=== PATIENT | male | born 1955 | race Caucasian/White ===

== ENCOUNTER 2021-09-19 10:58 | Emergency (ER) | payer BC, SELFPAY ==
[2021-09-19 11:10] VITALS: BP 120/88; PULSE 82; RESP 18; TEMP 36.3; O2SAT 97
--- NOTE | 2021-09-19 11:11 | ECG_ITS ---
Measurements Intervals [place] Rate: 82 P: 43 CO: 187 QRS: 66 QRSD: 85 T: 49 QT: 351 QTc: 412 Interpretive Statements SINUS RHYTHM NORMAL ECG Electronically Signed On 09-19-2021 17:02:33 [employer] by Lalito Orosco D.O.
--- NOTE | 2021-09-19 11:11 | ED.CHESTPAIN ---
HPI - Chest Pain General Chief Complaint: Weakness Stated Complaint: achy around lower rib cage, fatigue Time Seen by Provider: 09/19/21 11:11 Source: patient Mode of arrival: ambulatory Limitations: no limitations Related Data Home Medications Medication Instructions Recorded Confirmed escitalopram oxalate 20 mg PO DAILY 09/19/21 09/19/21 rivaroxaban [Xarelto] 10 mg PO DAILY 09/19/21 09/19/21 Allergies Allergy/AdvReac Type Severity Reaction Status Date / Time No Known Allergies Allergy Verified 09/19/21 11:18 Discharge Plan Discharge Prescriptions: No Action escitalopram oxalate 10 mg Tablet 20 mg PO DAILY RF: 0 Xarelto 10 mg Tablet 10 mg PO DAILY RF: 0
--- NOTE | 2021-09-19 11:30 | ED.GENADULT ---
HPI - General Adult General Chief complaint: Weakness Stated complaint: achy around lower rib cage, fatigue Time Seen by Provider: 09/19/21 11:11 Source: patient Mode of arrival: ambulatory Limitations: no limitations History of Present Illness HPI narrative: 66-year-old man with a history of pulmonary embolus comes emergency department complaining of fatigue that started yesterday and persists.. Patient states that yesterday he was having some ?achiness? under his ribcage bilaterally that has resolved today but now has achiness in his body generally. He denies fever, chills, cough, nausea, vomiting, diarrhea, abdominal pain or change in appetite. 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 Onset (ago): day(s) (1) Radiation: non-radiation Severity: moderate Quality: aching Pain Consistency: constant Relieving factors: none Exacerbating factors: none Treatments prior to arrival: none Related Data Home Medications Medication Instructions Recorded Confirmed escitalopram oxalate 20 mg PO DAILY 09/19/21 09/19/21 rivaroxaban [Xarelto] 10 mg PO DAILY 09/19/21 09/19/21 Allergies Allergy/AdvReac Type Severity Reaction Status Date / Time No Known Allergies Allergy Verified 09/19/21 11:18 Review of Systems Review of Systems: All systems reviewed & are unremarkable except as noted in HPI and below Constitutional: Constitutional: Denies chills and Denies fever(s) ENT: Denies nasal congestion and Denies sore throat Cardiovascular: Cardiovascular: Denies chest pain and Denies radiating jaw, neck or arm pain Respiratory: Respiratory: Denies cough, Denies dyspnea and Denies wheezing Gastrointestinal: Gastrointestinal: Denies abdominal pain, Denies diarrhea, Denies nausea and Denies vomiting Musculoskeletal: Musculoskeletal: Denies arthralgias and Denies joint swelling Integumentary/Breasts: Skin/Breast: Denies pruritus, Denies erythema and Denies rash Neurologic: Denies vertigo, Denies dizziness and Denies syncope [facility] Past Medical History Medical History (Updated 09/19/21 @ 12:19 by Dominic Simmons MD) Pulmonary embolus Social History Social History (Updated 09/19/21 @ 11:35 by Dominic Simmons MD) Tobacco type: cigars Substance use: never Exam Const: General: healthy appearing, no acute distress and alert Orientation/consciousness: patient oriented x3 Limitations: no limitations HENMT: Head: normal to inspection Ears: external ears normal, TM's normal bilaterally and EAC's normal General nose exam: Normal nares present Face and sinus: normal facial exam Mouth: Yes moist mucous membranes Throat: posterior oropharynx normal Eyes: Conjunctivae: conjunctivae normal Pupils: Equal, round and reactive pupils present EOM: EOMs intact bilaterally Resp: Effort & Inspection: normal respiratory effort and labored Auscultation: clear to auscultation bilaterally, rales, rhonchi and wheezes Cardio: Rate: regular rate Rhythm: regular rhythm Heart sounds: no murmurs GI: GI Palp: Yes Soft to palpation, No Tenderness to palpation present (GI) and No Guarding due to palpation present (GI) Auscultation: normal bowel sounds Skin: General skin exam: normal color, no jaundice and no pallor Rashes: no rashes Neuro: General: patient oriented x3, moves all extremities, no focal motor deficits and CN's II-XI intact bilaterally Speech: normal speech Gait exam (Neuro): Normal gait present Extrem: General: normal to inspection and no clubbing, cyanosis or edema Psych: Appearance: grossly normal and well kempt Mental Status: mental status grossly normal Affect: normal affect Attitude: cooperative Thought content: Yes Normal thought content present Course Vital Signs Vital signs: Vital Signs Temperature 36.3 C L 09/19/21 11:10 Pulse Rate 82 09/19/21 11:10 Respiratory Rate 18 09/19/21 11:10 Blood Pressure 120/88 09/19/21 11:10 Pulse Oximetry 97 12/2
[2021-09-19 11:57] LABS: SARS-CoV-2 RNA PCR Negative (Negative)
[2021-09-19 11:59] LABS: Influenza A QL RT-PCR Negative (Negative); Influenza B QL RT-PCR Negative (Negative)
[2021-09-19 12:22] VITALS: BP 129/86; PULSE 86; RESP 18; TEMP 36.7; O2SAT 98
== END 2021-09-19 12:26 | disposition home or self-care (01) ==
PROVIDERS: Emergency Provider Emergency Medicine; PCP Family Medicine
DX: M79.10 Myalgia, unspecified site (principal); Z20.822 Contact with and (suspected) exposure to COVID-19
CPT/HCPCS: 87502; 93005; 99283; C9803; U0003; U0005